=== PATIENT | male | born 1965 | race Caucasian/White ===

== ENCOUNTER 2017-10-10 06:25 | Emergency (ER) | payer SELFPAY ==
[~2017-10-10] VITALS: Ht 162.6 cm; Wt 73.1 kg
[2017-10-10 06:30] VITALS: Ht 162.6 cm; Wt 73.1 kg
[2017-10-10 07:29] LABS: ADD UMIC NO; UR ASCORBIC ACID NEGATIVE (NEGATIVE); UR BILIRUBIN (Dip) NEGATIVE (NEGATIVE); UR BLOOD (Dip) NEGATIVE (NEGATIVE); UR CLARITY CLEAR (CLEAR); UR COLOR YELLOW (YELLOW); UR GLUCOSE (Dip) NEGATIVE (NEGATIVE); UR KETONES (Dip) NEGATIVE (NEGATIVE); UR LEUKOCYTE ESTERASE (Dip) NEGATIVE Leu/ul (NEGATIVE); UR NITRITE (Dip) NEGATIVE (NEGATIVE); UR SPECIFIC GRAVITY (Dip) 1.018 (1.003-1.030); UR TOTAL PROTEIN (Dip) NEGATIVE (NEGATIVE); UR UROBILINOGEN (Dip) NEGATIVE (NEGATIVE)
--- NOTE | 2017-10-10 08:17 | RADRPT ---
PROCEDURE: CT Brain without contrast. CLINICAL INDICATION: Headache and nausea for 4 days. TECHNIQUE: A CT of the brain without contrast was performed utilizing axial sections from the skul l base through the vertex. The patient was scanned without intravenous contrast enhancement. Sagitta l and coronal reformatted images were obtained using the data from the axial images. Total exam DLP is 720.23 mGy-cm. CTDIvol is 45.01 mGy. One or more of the following dose reduction techniques we re used: Automated exposure control, adjustment of the mA and/or kV according to patient size, use o f iterative reconstruction technique. DICOM images are available. COMPARISON: None available FINDINGS: There is normal bee-white matter differentiation. The ventricles and cisterns are normal. There is no intracranial hemorrhage or space-occupying lesion. There is no skull fracture or lytic lesion. IMPRESSION: 1. Normal noncontrast CT scan of the brain. RPTAT: QQ .Phoenix Casas MD, MD Date Time Electronically viewed and signed by .Phoenix Casas MD, on 10/11/2017 07:38 .R/
[2017-10-10] MEDS ORDERED: ACET500C5 PO (08:36)
[2017-10-10] MEDS ORDERED: IBUP-1542 PO (08:36)
--- NOTE | 2017-10-10 08:53 | ERD ---
ER Documentation Chief Complaint Chief Complaint headache, nausea and dizziness x 4 days HPI 52-year-old male with no known prior medical history is complaining of a frontal achy headache for about 4 days with lightheadedness, nausea. Pain is mostly constant, he has not tried any interventions or pain medication for this. He has had this headache on and off in the past and not sure what it is exactly related to. He denies any head trauma, blurry vision. Patient also reports painful urination but no penile discharge, scrotal pain, scrotal swelling, flank pain, hematuria. He reports that he has had one female sexual partner. He denies chest pain, shortness of breath. He denies fevers chills. ROS All systems reviewed and are negative except as per history of present illness. Medications Home Meds Active Scripts Ibuprofen* (Motrin*) 600 Mg Tab, 600 MG PO Q6, #30 TAB Prov:MICHELE RENDON PA-C 10/10/17 Acetaminophen* (Tylophen*) 500 Mg Capsule, 1 CAP PO Q6H Y for PAIN AND OR ELEVATED TEMP, #20 CAP Prov:MICHELE RENDON PA-C 10/10/17 PMhx/Soc Medical and Surgical Hx: pt denies Medical Hx, pt denies Surgical Hx Hx Alcohol Use: No Hx Substance Use: No Hx Tobacco Use: No Smoking Status: Never smoker Physical Exam Vitals Vital Signs Date Time Temp Pulse Resp B/P Pulse Ox O2 Delivery O2 Flow Rate FiO2 10/10/17 06:30 98.0 76 19 123/75 97 Physical Exam General: Well-developed, well-nourished. The patient appears in no acute distress. HEENT: Head is normocephalic, atraumatic. No scleral icterus. Pupils are equal , round, and reactive. Oral mucous membranes are moist. No pharyngeal erythema. Neck: Supple. Nontender. Lungs: Clear to auscultation. Normal air movement. Heart: Regular rate and rhythm. S1 and S2 are normal. No murmurs, gallops, or rubs. Abdomen: Soft, nontender, nondistended. Bowel sounds are normoactive. Extremities: No clubbing or cyanosis. Normal pulses. Moving extremities x 4. No weakness. Neuro: M/S: Alert and oriented Face: EOMI, CN II-XII grossly intact Motor: Normal strength throughout Sensation: Normal sensation throughout Speech: Normal Cerebel: Normal coordination Normal gait Normal finger to nose DTR: 2+ and symmetric upper/lower extremities Skin: Normal turgor. No rash or lesions. Results 24 hrs Laboratory Tests Test 10/10/17 07:09 10/10/17 07:14 Urine Color YELLOW Urine Clarity CLEAR Urine pH 5.0 Urine Specific [place] 1.018 Urine Ketones NEGATIVEmg/dL Urine Nitrite NEGATIVEmg/dL Urine Bilirubin NEGATIVEmg/dL Urine Urobilinogen NEGATIVEmg/dL Urine Leukocyte Esterase NEGATIVELeu/ul Urine Hemoglobin NEGATIVEmg/dL Urine Glucose NEGATIVEmg/dL Urine Total Protein NEGATIVEmg/dl Bedside Glucose 108mg/dL DIAGNOSTIC IMAGING REPORT Patient: DK RIDER : 1965 Age: 52 Sex: M MR #: [id number] DOS: 10/10/17 0653 Ordering MD: MICHELE RENDON PA-C Location: [facility] Room/Bed: PROCEDURE: CT Brain without contrast. CLINICAL INDICATION: Headache. TECHNIQUE: A CT of the brain was performed on multidetector high-resolution CT scanner utilizing axial sections from the skull base through the vertex without contrast. The scan was reviewed in soft tissue brain and high frequency resolution bone algorithm windows. Images were reviewed on a high- resolution PACS workstation. One or more the following does reduction techniques were utilized: Automated exposure control, adjustment of the mA/ or kV according to patient's size, or use of iterative reconstruction technique. The exam CTDI = 45.01 mGy and the DLP = 720.23 mGy-cm. DICOM images are available. COMPARISON: None available. FINDINGS: The ventricles and sulci are minimally prominent indicative of volume loss. There is no intracranial hemorrhage, mass effect or midline shift. No abnormal intra-axial or extra-axial fluid collections are seen. The bee/white matter differentiation is preserved. There are minimal scattered foci of hypoattenuation in the white matter, which are nonspecific in etiology but likely reflect chronic small vessel ischemic changes. There are minimal intracranial vascular calcifications consistent with atherosclerosis. The visualized paranasal sinuses are essentially clear. Left parietal scalp swelling is noted without underlying skull fracture. IMPRESSION: 1. No acute intracranial hemorrhage, transcortical infarction or mass effect. 2. Minimal intracranial atherosclerosis and chronic small vessel ischemic changes. 3. Minimal generalized cerebral volume loss. 4. Left parietal scalp swelling without underlying skull fracture. RPTAT: HFN .Awilda Kaye MD, Date Time Electronically viewed and signed by .Awilda Kaye MD, MD on 10/10/2017 08: 16 .N/ Procedures/JUDITH Mukherjee decision makin-year-old male comes in with headache for the past 4 days, is described as achy and lightheaded and it does not seem to cause him in any acute distress. Neurologically neurovascular the patient is intact, she he does not have any stroke symptoms, focal neurologic changes. Urine was obtained given his dysuria but there is no evidence of infection, he does not have any history to indicate definite urethritis, he was advised that his urine will be sent to rule out gonorrhea and chlamydia and he will be notified if he needs antibiotic treatment. A CT scan of the head was obtained given the patient's age and dizziness, there is no acute intracranial process, mass- effect or midline shift or bleed. I also obtained an Accu-Chek, the patient's blood sugar is in the 100s, no evidence of DKA or hypoglycemia. Symptoms are not related to fever, he has no meningismus, suspicion for meningitis is low. I do not believe the patient is a candidate for an LP. Vitals reviewed, he is afebrile, there is no tachycardia, blood pressure is normal, patient does not meet SIRS criteria. His headache appears to be benign, nonspecific, he will be given Tylenol as well as ibuprofen. He is to recheck with his primary care doctor may follow-up outpatient. Patient's blood pressure was elevated (>120/80) but appears stable without evidence of hypertension emergency or urgency. The patient was counseled about the risks of hypertension and urged to pursue outpatient monitoring and therapy within a week with their primary care physician. Departure Diagnosis: Primary Impression: Headache Condition: Good Patient Instructions: Self-Care for Headaches Additional Instructions: Llame al doctor ERROL y xavi manda SKY PARA DENTRO DE 1-2 BOYD.Dgale a la secretaria que nosotros le instruimos hacer esta sky.Avise o llame si martínez condicin se empeora antes de la sky. Regresa aqui si peor o no mejor. MICHELE RENDON PA-C Oct 10, 2017 08:53
== END 2017-10-10 08:41 | disposition home or self-care (01) ==
LOC: FTE 06:25
DX: R51 Headache (principal)
CPT/HCPCS: 70450; 81003; 82962; 87591